=== PATIENT | female | born 1965 | race Asian ===

== ENCOUNTER 2017-03-18 08:19 | Day surgery (SDC) | payer OTHER ==
[~2017-03-18] VITALS: Ht 157.5 cm; Wt 52.2 kg
[2017-03-18] MEDS ORDERED: LIDOCAINE 2% 100 MG/5 ML UJET TP ONE (11:29)
[2017-03-18] MEDS ORDERED: KETOROLAC 30 MG/ML VIAL ONE (11:29)
== END 2017-03-18 12:35 | disposition home or self-care (01) ==
LOC: MDS 08:19 → MMU 08:20 → MDS 12:35
PROVIDERS: ATTEND Internal Medicine Gastroenterology
DX: Z12.11 Encounter for screening for malignant neoplasm of colon (principal); B19.10 Unspecified viral hepatitis B without hepatic coma; Z98.890 Other specified postprocedural states; Z79.899 Other long term (current) drug therapy; Z68.21 Body mass index [BMI] 21.0-21.9, adult
CPT/HCPCS: 45378; J1885